=== PATIENT | female | born 2000 ===

== ENCOUNTER 2022-09-30 15:06 | Outpatient (REF) | payer BC, SELFPAY ==
--- NOTE | 2022-09-30 13:50 | PAPFT_PTH ---
PATIENT: Gregory Piedra LOC: [facility] U#:[id number] AGE/SX: 22/F ROOM: RE09/30/[address]: Dianna Chowdary NP : [id number] BED: DIS: 09/30/2022 SPEC #: [id number] RECD: 09/30/22 18:46 STATUS: CRICKET [facility]ER #: [id number] MARGARET: 09/30/22 13:[address]: Dianna Chowdary NP DEPT: [facility] Cytology RECD BY: Shelia Garcia Tissues: 1 - CX/ENDOCX FOR PAP SMEARS Procedures: PAP THIN PREP/[facility] Screening Comments: (CHLAMYDIA/GC)
[2022-10-01 14:26] LABS: Chlamydia Result Negative (Negative); GC Result Negative (Negative)
== END 2022-09-30 15:07 | disposition home or self-care (01) ==
LOC: LBN 15:06
PROVIDERS: Visit Provider Nurse Practitioner Women's Health
DX: Z11.3 Encounter for screening for infections with a predominantly sexual mode of transmission (principal); Z12.4 Encounter for screening for malignant neoplasm of cervix
CPT/HCPCS: 87491; 87591; 88142